=== PATIENT | male | born 1985 | race Caucasian/White ===

== ENCOUNTER 2021-09-22 20:11 | Inpatient (IN) | payer MEDICAID, OTHER ==
[~2021-09-22] VITALS: Ht 157.5 cm; Wt 68.0 kg
[2021-09-22] MEDS ORDERED: HALOPERIDOL LACTATE 5 MG/ML VIAL IM ONE (21:15)
[2021-09-22] MEDS ORDERED: LORazepam 2 MG/ML VIAL IM ONE (21:15)
[2021-09-22] MEDS ORDERED: DiphenhydrAMINE HCL 50 MG/ML VIAL IM ONE (21:15)
[2021-09-22 22:28] LABS: COVID AG,FIA SOURCE NASOPHARYNGEAL
[2021-09-22 22:38] LABS: BASOPHILS % (AUTO) 0.7 % (0.0-2.0); EOSINOPHILS % (AUTO) 3.2 % (1.0-6.0); HEMATOCRIT 36.3 % (41-53); LYMPHOCYTES # (AUTO) 1.9 K/uL (1.0-4.8); LYMPHOCYTES % (AUTO) 33.7 % (22.0-44.0); MEAN CORPUSCULAR HEMOGLOBIN 26.5 pg (26.0-34.0); MEAN CORPUSCULAR VOLUME 80 fL (80-100); MONOCYTES # (AUTO) 0.4 K/uL (0.1-1.0); MONOCYTES % (AUTO) 7.5 % (2.0-9.0); NEUTROPHILS # (AUTO) 3.1 K/uL (1.8-7.7); NEUTROPHILS % (AUTO) 54.9 % (40.0-70.0); PLATELET COUNT (AUTO) 461 K/uL (150-450); RED BLOOD CELL COUNT(AUTO) 4.51 MIL/uL (4.50-5.90); RED CELL DISTRIBUTION WIDTH 16.4 % (11.5-14.5)
[2021-09-22 22:47] LABS: ANION GAP 7 mmol/L (8-16); CALCIUM, TOTAL 8.8 mg/dL (8.8-10.5); CARBON DIOXIDE 27 mmol/L (22-29); CHLORIDE 107 mmol/L (98-107); CREATININE 1.06 mg/dL (0.60-1.30); GLOMERULAR FILTR. RATE CALC > 60 mL/min (>60); GLUCOSE,RANDOM 84 mg/dL (70-110); POTASSIUM 3.7 mmol/L (3.5-5.1); SODIUM SERUM 141 mmol/L (136-145); UREA NITROGEN, BLOOD 32 mg/dL (7-18)
[2021-09-22 22:56] LABS: ALANINE AMINOTRANSFERASE 39 U/L (12-78); ALBUMIN 3.4 g/dL (3.4-5.0); ALKALINE PHOSPHATASE 157 U/L (46-116); ASPARTATE AMINOTRANSFERASE 54 U/L (15-37); BILIRUBIN,TOTAL 0.6 mg/dL (0.1-1.0); TOTAL PROTEIN, SERUM 7.4 g/dL (6.4-8.2)
[2021-09-22] MEDS ORDERED: HALOPERIDOL 5 MG TABLET PO PRN (23:30)
[2021-09-23 04:36] LABS: CHOL/HDL RATIO 2.2 (4.2-7.3); CHOLESTEROL 165 mg/dL (131-200); HDL CHOLESTEROL 76 mg/dL (40-60); LDL CHOL (CALC.) 81 mg/dL (0-130); TRIGLYCERIDES 41 mg/dL (15-150)
[2021-09-23] MEDS ORDERED: DOCUSATE SODIUM 100 MG CAPSULE PO PRN (13:45)
[2021-09-23] MEDS ORDERED: MAG HYDROX/AL HYDROX/SIMETH ES 30 ML SUSPENSION UDCUP PO PRN (13:45)
[2021-09-23] MEDS ORDERED: ACETAMINOPHEN 325 MG TABLET PO PRN (13:45)
[2021-09-23] MEDS ORDERED: ALBUTEROL SULFATE HFA 90 MCG/PUFF 8 GM INHALER IH PRN (13:45)
[2021-09-23] MEDS ORDERED: PETROLATUM,WHITE 28 GM JELLY TP PRN (13:45)
[2021-09-23] MEDS ORDERED: NICOTINE 14 MG/24 HOUR PATCH TD PRN (13:45)
[2021-09-23] MEDS ORDERED: IBUPROFEN 400 MG TABLET PO PRN (13:45)
[2021-09-23] MEDS ORDERED: MAGNESIUM HYDROXIDE SUSPENSION 30 ML UDCUP PO PRN (13:45)
[2021-09-23] MEDS ORDERED: ONDANSETRON HCL 4 MG TABLET PO PRN (13:45)
[2021-09-23] MEDS ORDERED: CloNIDine HCL 0.1 MG TABLET PO PRN (13:45)
[2021-09-23] MEDS ORDERED: LOPERAMIDE HCL 2 MG CAPSULE PO PRN (13:45)
[2021-09-23] MEDS ORDERED: GuaiFENesin/D-METHORPHAN [SUGAR-FREE] 200-20MG/10 ML SYRUP UDCUP PO PRN (13:45)
[2021-09-23 14:11] VITALS: BP 123/83
[2021-09-23 14:15] VITALS: BP 123/83
[2021-09-23] MEDS ORDERED: INFLUENZA VIRUS VACCINE QVS 2021-22 (6MO+)/PF 60 MCG/0.5 ML SYRINGE IM. ONE (14:45)
[2021-09-23 16:29] VITALS: BP 114/71
[2021-09-23] MEDS: LORazepam 2 MG TABLET PO PRN (17:07)
[2021-09-23] MEDS: ZOLPIDEM TARTRATE 10 MG TABLET PO PRN (20:26)
[2021-09-24 06:45] VITALS: BP 118/73
[2021-09-24 08:15] VITALS: BP 117/72
[2021-09-24] MEDS: LORazepam 2 MG TABLET PO PRN (12:27)
[2021-09-24 16:20] VITALS: BP 128/72
[2021-09-24] MEDS: RisperiDONE 1 MG TABLET PO SCH (16:25)
[2021-09-24] MEDS: ZOLPIDEM TARTRATE 10 MG TABLET PO PRN (20:23)
[2021-09-25 06:05] VITALS: BP 122/76
[2021-09-25 07:41] LABS: APPEARANCE,URINE CLEAR (CLEAR); BILIRUBIN,URINE NEGATIVE (NEGATIVE); GLUCOSE, URINE (UA) NEGATIVE (NEGATIVE); KETONES,URINE NEGATIVE (NEGATIVE); LEUKOCYTE ESTERASE ,URINE NEGATIVE (NEGATIVE); NITRATE,URINE NEGATIVE (NEGATIVE); OCCULT BLOOD,URINE NEGATIVE (NEGATIVE); PH,URINE 6.5 (5.0-8.0); PROTEIN,URINE NEGATIVE (NEGATIVE); UROBILINOGEN,URINE 0.2 mg/dL (<=1.0)
[2021-09-25 07:52] LABS: AMPHET/METH SCREEN,URINE NEGATIVE (NEGATIVE); BARBITURATE SCREEN, URINE NEGATIVE (NEGATIVE); BENZODIAZEPINES SCREEN,URINE NEGATIVE (NEGATIVE); CANNABINOID SCREEN,URINE NEGATIVE (NEGATIVE); COCAINE SCREEN,URINE NEGATIVE (NEGATIVE); METHADONE SCREEN, URINE NEGATIVE (NEGATIVE); OPIATE SCREEN,URINE NEGATIVE (NEGATIVE)
[2021-09-25 07:57] LABS: PHENCYCLIDINE SCREEN,URINE NEGATIVE (NEGATIVE)
[2021-09-25] MEDS: LORazepam 2 MG TABLET PO PRN (08:14)
[2021-09-25] MEDS: RisperiDONE 1 MG TABLET PO SCH ×2 (08:14→17:09)
[2021-09-25 09:01] VITALS: BP 120/74
[2021-09-25 16:08] VITALS: BP 139/93
[2021-09-26 01:17] VITALS: BP 133/82
[2021-09-26] MEDS: LORazepam 2 MG TABLET PO PRN (08:14)
[2021-09-26] MEDS: RisperiDONE 1 MG TABLET PO SCH (08:14)
[2021-09-26 08:31] VITALS: BP 113/67
[2021-09-26] MEDS ORDERED: RISP1TAB98 PO (11:11)
== END 2021-09-26 13:00 | disposition home or self-care (01) | DRG 751 ==
LOC: EMS 20:14 → EDBD 20:14 → B3A 09-23 09:01
PROVIDERS: ADMIT Psychiatry & Neurology Child & Adolescent Psychiatry; ATTEND Psychiatry & Neurology Child & Adolescent Psychiatry
DX: F29 Unspecified psychosis not due to a substance or known physiological condition (principal); D64.9 Anemia, unspecified; Z20.822 Contact with and (suspected) exposure to COVID-19; F41.9 Anxiety disorder, unspecified; Z78.1 Physical restraint status
CPT/HCPCS: 80053; 80061; 80307; 81003; 85025; 99285; G0480; J1200; J1630; J2060

== ENCOUNTER 2023-01-28 10:03 | Inpatient (IN) | payer MEDICAID ==
[~2023-01-28 10:03] MED LIST: RISP1TAB98 PO
[2023-01-28] MEDS ORDERED: LORazepam 2 MG TABLET PO PRN (12:30)
[2023-01-28] MEDS ORDERED: HALOPERIDOL 5 MG TABLET PO PRN (12:30)
[2023-01-28] MEDS ORDERED: ZOLPIDEM TARTRATE 10 MG TABLET PO PRN (12:30)
[2023-01-28 14:48] VITALS: PULSE 94; RESP 19; TEMP 98.4
[2023-01-28 15:24] VITALS: BP 150/88; PULSE 80; RESP 18; TEMP 97.9; O2SAT 95
[2023-01-28] MEDS ORDERED: MAGNESIUM HYDROXIDE SUSPENSION 30 ML UDCUP PO PRN (21:30)
[2023-01-28] MEDS ORDERED: ONDANSETRON HCL 4 MG TABLET PO PRN (21:30)
[2023-01-28] MEDS ORDERED: OMEPRAZOLE 20 MG CAPSULE PO PRN (21:30)
[2023-01-28] MEDS ORDERED: ALBUTEROL SULFATE HFA 90 MCG/PUFF 8 GM INHALER IH PRN (21:30)
[2023-01-28] MEDS ORDERED: CloNIDine HCL 0.1 MG TABLET PO PRN (21:30)
[2023-01-28] MEDS ORDERED: DOCUSATE SODIUM 100 MG CAPSULE PO PRN (21:30)
[2023-01-28] MEDS ORDERED: LOPERAMIDE HCL 2 MG CAPSULE PO PRN (21:30)
[2023-01-28] MEDS ORDERED: BACITRACIN 28 GM OINTMENT TP PRN (21:30)
[2023-01-28] MEDS ORDERED: IBUPROFEN 600 MG TABLET PO PRN (21:30)
[2023-01-28] MEDS ORDERED: ACETAMINOPHEN 325 MG TABLET PO PRN (21:30)
[2023-01-28] MEDS ORDERED: PETROLATUM,WHITE 28 GM JELLY TP PRN (21:30)
[2023-01-28] MEDS ORDERED: MAG HYDROX/AL HYDROX/SIMETH ES 30 ML SUSPENSION UDCUP PO PRN (21:30)
[2023-01-29 05:09] VITALS: BP 124/76; PULSE 79; RESP 18; TEMP 97.9; O2SAT 98
[2023-01-29 07:31] LABS: BASOPHILS % (AUTO) 0.2 % (0.0-2.0); EOSINOPHILS % (AUTO) 1.9 % (1.0-6.0); HEMATOCRIT 42.7 % (41-53); LYMPHOCYTES # (AUTO) 3.6 K/uL (1.0-4.8); LYMPHOCYTES % (AUTO) 42.1 % (22.0-44.0); MEAN CORPUSCULAR HEMOGLOBIN 30.9 pg (26.0-34.0); MEAN CORPUSCULAR HGB CONC 32.8 G/dL (31.0-37.0); MEAN CORPUSCULAR VOLUME 94 fL (80-100); MONOCYTES # (AUTO) 0.4 K/uL (0.1-1.0); MONOCYTES % (AUTO) 4.4 % (2.0-9.0); NEUTROPHILS # (AUTO) 4.4 K/uL (1.8-7.7); NEUTROPHILS % (AUTO) 51.4 % (40.0-70.0); PLATELET COUNT (AUTO) 308 K/uL (150-450); RED BLOOD CELL COUNT(AUTO) 4.53 MIL/uL (4.50-5.90); RED CELL DISTRIBUTION WIDTH 13.7 % (11.5-14.5)
[2023-01-29 07:43] LABS: HEMOGLOBIN A1C 6.2 % (3.8-5.6)
[2023-01-29 08:17] LABS: ALANINE AMINOTRANSFERASE 52 U/L (12-78); ALBUMIN 3.3 g/dL (3.4-5.0); ALKALINE PHOSPHATASE 75 U/L (46-116); ANION GAP 6 mmol/L (8-16); ASPARTATE AMINOTRANSFERASE 20 U/L (15-37); BILIRUBIN,TOTAL 0.2 mg/dL (0.1-1.0); CALCIUM, TOTAL 8.3 mg/dL (8.8-10.5); CARBON DIOXIDE 29 mmol/L (22-29); CHLORIDE 105 mmol/L (98-107); CHOLESTEROL 144 mg/dL (131-200); CREATININE 0.65 mg/dL (0.60-1.30); FREE T4 (FREE THYROXINE) 0.88 ng/dL (0.76-1.46); GLOMERULAR FILTR. RATE CALC > 60 mL/min (>60); GLUCOSE,RANDOM 113 mg/dL (70-110); HDL CHOLESTEROL 29 mg/dL (40-60); LDL CHOL (CALC.) 93 mg/dL (0-130); POTASSIUM 3.4 mmol/L (3.5-5.1); SODIUM SERUM 140 mmol/L (136-145); THYROID STIMULATING HORMONE 1.61 uIU/mL (0.36-3.74); TRIGLYCERIDES 109 mg/dL (15-150)
[2023-01-29 10:34] VITALS: BP 120/70; PULSE 69; RESP 17; TEMP 98; O2SAT 95
[2023-01-29 22:32] VITALS: BP 131/71; PULSE 71; RESP 18; TEMP 98; O2SAT 98
[2023-01-30 11:08] VITALS: BP 116/80; PULSE 69; RESP 17; TEMP 98; O2SAT 97
[2023-01-30] MEDS ORDERED: SERT-439 PO (14:33)
[2023-01-30] MEDS ORDERED: TRAZ-252 PO (14:33)
[2023-01-30] MEDS ORDERED: HYDR25TA PO (14:33)
[2023-01-30] MEDS ORDERED: RISP2TAB45 PO (14:33)
[2023-01-30] MEDS: SERTRALINE HCL 50 MG TABLET PO SCH (16:18)
[2023-01-30] MEDS: RisperiDONE 1 MG TABLET PO SCH (16:57)
[2023-01-30] MEDS: LITHIUM CARBONATE 300 MG CAPSULE PO SCH (17:00)
[2023-01-30 20:48] VITALS: BP 145/89; PULSE 74; RESP 18; TEMP 98.4; O2SAT 98
[2023-01-31 08:16] VITALS: BP 113/77; PULSE 66; RESP 17; TEMP 98.1; O2SAT 97
[2023-01-31] MEDS: LITHIUM CARBONATE 300 MG CAPSULE PO SCH ×2 (08:17→17:17)
[2023-01-31] MEDS: SERTRALINE HCL 50 MG TABLET PO SCH (08:17)
[2023-01-31] MEDS: RisperiDONE 1 MG TABLET PO SCH ×2 (08:17→17:17)
[2023-01-31 20:14] VITALS: BP 131/76; PULSE 86; RESP 18; TEMP 98.2; O2SAT 98
[2023-02-01] MEDS: SERTRALINE HCL 50 MG TABLET PO SCH (08:02)
[2023-02-01] MEDS: RisperiDONE 1 MG TABLET PO SCH ×2 (08:02→17:37)
[2023-02-01] MEDS: LITHIUM CARBONATE 300 MG CAPSULE PO SCH ×2 (08:02→17:37)
[2023-02-01 08:31] VITALS: BP 115/70; PULSE 70; RESP 17; TEMP 98; O2SAT 95
[2023-02-01 20:20] VITALS: BP 116/70; PULSE 75; RESP 18; TEMP 98.4; O2SAT 96
[2023-02-02] MEDS: SERTRALINE HCL 50 MG TABLET PO SCH (08:03)
[2023-02-02] MEDS: LITHIUM CARBONATE 300 MG CAPSULE PO SCH ×2 (08:03→17:21)
[2023-02-02] MEDS: RisperiDONE 1 MG TABLET PO SCH ×2 (08:04→17:21)
[2023-02-02 08:29] VITALS: BP 118/76; PULSE 68; RESP 17; TEMP 98; O2SAT 96
[2023-02-02 20:15] VITALS: BP 118/71; PULSE 71; RESP 18; TEMP 98.4; O2SAT 96
[2023-02-03] MEDS: SERTRALINE HCL 50 MG TABLET PO SCH (08:10)
[2023-02-03] MEDS: RisperiDONE 1 MG TABLET PO SCH ×2 (08:10→17:14)
[2023-02-03] MEDS: LITHIUM CARBONATE 300 MG CAPSULE PO SCH ×2 (08:10→17:14)
[2023-02-03 08:37] VITALS: BP 122/74; PULSE 66; RESP 17; TEMP 97.9; O2SAT 97
[2023-02-03 20:14] VITALS: BP 134/82; PULSE 71; RESP 18; TEMP 98.4; O2SAT 96
[2023-02-04] MEDS: SERTRALINE HCL 50 MG TABLET PO SCH (08:28)
[2023-02-04] MEDS: LITHIUM CARBONATE 300 MG CAPSULE PO SCH ×2 (08:28→16:40)
[2023-02-04] MEDS: RisperiDONE 1 MG TABLET PO SCH ×2 (08:28→16:40)
[2023-02-04 08:37] VITALS: BP 117/77; PULSE 62; RESP 17; TEMP 98.2; O2SAT 97
[2023-02-04 20:23] VITALS: BP 124/75; PULSE 68; RESP 18; TEMP 98.7; O2SAT 95
[2023-02-04] MEDS: TraZODone HCL 50 MG TABLET PO SCH (21:00)
[2023-02-05] MEDS: LITHIUM CARBONATE 300 MG CAPSULE PO SCH ×2 (08:10→16:08)
[2023-02-05] MEDS: SERTRALINE HCL 50 MG TABLET PO SCH (08:10)
[2023-02-05] MEDS: RisperiDONE 1 MG TABLET PO SCH ×2 (08:10→16:08)
[2023-02-05 09:08] VITALS: BP 111/66; PULSE 73; RESP 16; TEMP 97.9; O2SAT 96
[2023-02-05 20:22] VITALS: BP 121/71; PULSE 64; RESP 18; TEMP 98.2; O2SAT 97
[2023-02-05] MEDS: TraZODone HCL 50 MG TABLET PO SCH (20:35)
[2023-02-06] MEDS: LITHIUM CARBONATE 300 MG CAPSULE PO SCH ×2 (08:01→16:54)
[2023-02-06] MEDS: SERTRALINE HCL 50 MG TABLET PO SCH (08:01)
[2023-02-06] MEDS: RisperiDONE 1 MG TABLET PO SCH ×2 (08:01→16:54)
[2023-02-06 08:27] VITALS: BP 104/61; PULSE 62; RESP 16; TEMP 97.6; O2SAT 97
[2023-02-06 20:22] VITALS: BP 121/80; PULSE 69; RESP 18; TEMP 98.4; O2SAT 97
[2023-02-06] MEDS: TraZODone HCL 50 MG TABLET PO SCH (20:47)
[2023-02-07 07:58] LABS: ANION GAP 7 mmol/L (8-16); CALCIUM, TOTAL 8.7 mg/dL (8.8-10.5); CARBON DIOXIDE 28 mmol/L (22-29); CHLORIDE 103 mmol/L (98-107); CREATININE 0.82 mg/dL (0.60-1.30); GLOMERULAR FILTR. RATE CALC > 60 mL/min (>60); GLUCOSE,RANDOM 103 mg/dL (70-110); POTASSIUM 3.6 mmol/L (3.5-5.1); SODIUM SERUM 138 mmol/L (136-145)
[2023-02-07] MEDS: LITHIUM CARBONATE 300 MG CAPSULE PO SCH ×2 (08:00→16:25)
[2023-02-07] MEDS: RisperiDONE 1 MG TABLET PO SCH ×2 (08:00→16:25)
[2023-02-07] MEDS: SERTRALINE HCL 50 MG TABLET PO SCH (08:01)
[2023-02-07 08:41] VITALS: BP 108/63; PULSE 64; RESP 17; TEMP 97.7; O2SAT 98
[2023-02-07 09:44] LABS: LITHIUM 0.44 mmol/L (0.60-1.20)
[2023-02-07 20:27] VITALS: BP 132/82; PULSE 74; RESP 20; TEMP 98.2; O2SAT 98
[2023-02-07] MEDS: TraZODone HCL 50 MG TABLET PO SCH (20:36)
[2023-02-08] MEDS: SERTRALINE HCL 50 MG TABLET PO SCH (08:02)
[2023-02-08] MEDS: LITHIUM CARBONATE 300 MG CAPSULE PO SCH ×2 (08:02→17:21)
[2023-02-08] MEDS: RisperiDONE 1 MG TABLET PO SCH ×2 (08:02→17:21)
[2023-02-08 08:28] LABS: ALANINE AMINOTRANSFERASE 41 U/L (12-78); ALBUMIN 3.2 g/dL (3.4-5.0); ALKALINE PHOSPHATASE 71 U/L (46-116); ANION GAP 7 mmol/L (8-16); ASPARTATE AMINOTRANSFERASE 19 U/L (15-37); BILIRUBIN,TOTAL 0.3 mg/dL (0.1-1.0); CALCIUM, TOTAL 8.3 mg/dL (8.8-10.5); CARBON DIOXIDE 29 mmol/L (22-29); CHLORIDE 103 mmol/L (98-107); CREATININE 0.76 mg/dL (0.60-1.30); GLOMERULAR FILTR. RATE CALC > 60 mL/min (>60); GLUCOSE,RANDOM 100 mg/dL (70-110); POTASSIUM 3.7 mmol/L (3.5-5.1); SODIUM SERUM 139 mmol/L (136-145); TOTAL PROTEIN, SERUM 6.9 g/dL (6.4-8.2)
[2023-02-08 09:33] VITALS: BP 128/78; PULSE 78; RESP 18; TEMP 98; O2SAT 100
[2023-02-08 20:07] VITALS: BP 127/72; PULSE 72; RESP 19; TEMP 98.6; O2SAT 98
[2023-02-08] MEDS: TraZODone HCL 50 MG TABLET PO SCH (20:25)
[2023-02-09 08:59] VITALS: BP 108/69; PULSE 66; RESP 17; TEMP 98
[2023-02-09] MEDS: SERTRALINE HCL 50 MG TABLET PO SCH (09:32)
[2023-02-09] MEDS: LITHIUM CARBONATE 300 MG CAPSULE PO SCH (09:32)
[2023-02-09] MEDS: RisperiDONE 1 MG TABLET PO SCH (09:32)
[2023-02-09 12:56] LABS: GLUCOMETER DEV NAME(LOC) POC.BV
[2023-02-09] MEDS ORDERED: LITH300C3 PO (14:31)
[2023-02-09] MEDS ORDERED: RISP0.5T39 PO (14:32)
[2023-02-09] MEDS ORDERED: TRAZ-252 PO (14:33)
== END 2023-02-09 15:05 | disposition home or self-care (01) | DRG 750 ==
LOC: B3A 14:46
PROVIDERS: ADMIT Psychiatry & Neurology Psychiatry; ATTEND Psychiatry & Neurology Psychiatry
DX: F20.9 Schizophrenia, unspecified (principal); R45.851 Suicidal ideations; Z20.822 Contact with and (suspected) exposure to COVID-19; F10.90 Alcohol use, unspecified, uncomplicated; F31.9 Bipolar disorder, unspecified; F41.9 Anxiety disorder, unspecified; G47.00 Insomnia, unspecified; K59.00 Constipation, unspecified; Z72.0 Tobacco use
CPT/HCPCS: 80048; 80053; 80061; 80178; 83036; 84436; 84439; 84443; 85025; 86592; G0480